=== PATIENT | female | born 1930 | race Caucasian/White ===

== ENCOUNTER → 2017-03-06 | Outpatient (CLI) | payer OTHER ==
[~2017-03-06] MED LIST: ARNICA120 ML TP; ASA5UEC PO; BACLOFEN 10MG T10 M1 PO; CENTRUM SILVER1 EAC1 PO; CITRACAL + BON1 EACH PO; CO Q-10100 MG PO; DRAMAMINE50 M1; EQL CALCIUM IN1 EACH PO; FISH OIL-OMEGA1 EACH PO; FOLIC ACID 40400 MC1 PO; FOSAMAX5 MG PO; HYDROCODON-ACE1 EAC7 PO; IRON159 MG PO; LEVOTHROID PO; MECLIZINE HCL12.5 MG PO; MELATONIN1 MG PO; NABUMETONE 500500 M1 PO; SAM-E200 M1 PO; TRAMADOL 50 MG50 MG PO; VITAMIN B-12500 MCG PO; VITAMIN E100 UNI3 PO; VITAMIN E400 UNIT PO; VITAMIN K100 MCG PO; VITAMINC500 PO; ZANTAC 150MG T150 M1 PO; ZESTRIL20 MG PO; ZINC PICOLINAT1 EACH PO
== END ==
LOC: RAD 14:44
DX: S29.9XXA Unspecified injury of thorax, initial encounter (principal); X58.XXXA Exposure to other specified factors, initial encounter; Y93.89 Activity, other specified; Y92.89 Other specified places as the place of occurrence of the external cause; Y99.8 Other external cause status

== ENCOUNTER → 2018-04-08 | Outpatient (CLI) | payer OTHER | LOC: RAD 09:03 | DX: J98.11 Atelectasis (principal); J98.4 Other disorders of lung; M41.84 Other forms of scoliosis, thoracic region; I10 Essential (primary) hypertension; E03.9 Hypothyroidism, unspecified ==

== ENCOUNTER → 2018-04-22 | Outpatient (CLI) | payer OTHER | LOC: RAD 14:25 | DX: J18.9 Pneumonia, unspecified organism (principal); J98.4 Other disorders of lung; M41.84 Other forms of scoliosis, thoracic region ==

== ENCOUNTER → 2019-03-09 | Outpatient (CLI) | payer OTHER | LOC: RAD 11:17 | DX: J44.9 Chronic obstructive pulmonary disease, unspecified (principal); I10 Essential (primary) hypertension; I70.0 Atherosclerosis of aorta; J98.4 Other disorders of lung; M47.814 Spondylosis without myelopathy or radiculopathy, thoracic region; Z88.8 Allergy status to other drugs, medicaments and biological substances ==

== ENCOUNTER → 2020-02-07 | Outpatient (CLI) | payer OTHER ==
[~2020-02-07] MED LIST changes: +K2 PLUS D3 TAB1 EACH PO; +LEVO-T50 MCG PO; +MULTIVITAMINS1 EAC7 PO
== END ==
LOC: LAB 08:37
PROVIDERS: ATTEND Student in an Organized Health Care Education/Training Program
DX: Z01.812 Encounter for preprocedural laboratory examination (principal); Z11.59 Encounter for screening for other viral diseases

== ENCOUNTER → 2020-02-09 | Day surgery (SDC) | payer OTHER ==
[~2020-02-09] VITALS: Ht 157.5 cm; Wt 68.5 kg
[2020-02-09 11:16] VITALS: BP 159/70
[2020-02-09 14:20] VITALS: BP 159/70
--- NOTE | 2020-02-16 07:37 | O ---
[facility] [place] [address] OPERATIVE REPORT Name: [place] Room #: [facility].#: [id number] Admission: 02/09/20 Attend Phys: Gian Melo MD Discharge: Date of : 34 Report #: [id number] THIS REPORT FOR: cc: Abdullahi Peterson MD, Rene P. MD McCabe,Gian Jones MD ~ CC: Gian Peterson DATE OF SERVICE: 02/09/2020 SERVICE: Orthopedics. FACILITY: [facility]. SURGEON: Gian Melo MD [employer] REPRESENTATIVE: Marilee Boss NP. PREOPERATIVE DIAGNOSES: Comminuted displaced left intra-articular distal radius fracture. POSTOPERATIVE DIAGNOSIS: Comminuted displaced left intraarticular distal radius fracture. PROCEDURE: Open reduction and internal fixation of left distal radius fracture with fixation of 3 parts. COMPLICATIONS: None. DRAINS: None. SPECIMENS: None. FINDINGS: 1. Volarly displaced fracture, treated with Synthes volar plate. 2. Extra-articular hardware position confirmed in xrays multiple planes. HISTORY: The patient is an 89-year-old female who sustained a fall resulted in a severely displaced left distal radius fracture. She had a closed reduction performed, but lost reduction and had significant deformity to her wrist despite a period of immobilization with an above elbow splint. She was having pain and was concerned about the deformity and together with consultation with her daughter we elected to proceed with surgical treatment for a quicker resolution of this situation with more anatomic alignment of her wrist and decreased risk of recurrent instability and worsening deformity. Risks, benefits, alternatives [facility] [address] [place] [address] OPERATIVE REPORT Name: [place] Room #: [facility].#: [id number] Admission: 02/09/20 Attend Phys: Gian Melo MD Discharge: Date of : 34 Report #: [id number] and indication of surgery discussed with her. Risks include but not limited to pain, bleeding, infection, injury to nerves or blood vessels, malunion, nonunion, need for further surgery as well as complications related to anesthesia up to and including . Despite the risks, she wished to proceed. PROCEDURE IN DETAIL: After left arm was correctly identified as the operative extremity, the patient was taken to the operating room where general anesthesia was induced without complication. She was padded appropriately. Prophylactic antibiotics were administered at appropriate time. Tourniquet was applied to the left arm. Left upper extremity was then prepped and draped in standard sterile fashion. Time-out procedure was performed. Esmarch was used. Tourniquet inflated to 250 mmHg. Standard anterior approach was made to the wrist through the flexor carpi radialis tendon sheath which was retracted and then the pronator quadratus was visualized and then was incised and reflected off the distal radius. The fracture was visualized as well and gapped open. The fracture hematoma was irrigated. Reduction maneuver was performed. Alignment was assessed on x-ray and then we placed the plate and provisional fixation was achieved through the oval hole. I again checked the position on multiple planes of x-ray and was happy with the position and confirmed that it was proximal to the articular space and then placed the distal locking screws as well as the shaft screws. The fracture was maintained in good alignment, both on AP and lateral view. Again, the screws were confirmed to be in an extraarticular position without penetrating the posterior cortex. After all fixation was completed, I took final x-rays and again confirmed appropriate position of the plate as well as the screws and alignment of the fracture in the wrist. The three fragments total were the shaft fragment, the volar cortical fragment which was contiguous with the ulnar column and then the radial styloid/radial column segment. The fracture line did extend into the joint and the fixation did stabilize the fracture well and support the articular surface. Her wound was copiously irrigated. The skin was closed with 2-0 Vicryl followed by nylons and then a sterile dressing and a short-arm splint was then applied. The patient was awakened from anesthesia and taken to recovery room in stable condition. There were no complications and all counts were recorded as correct. <ELECTRONICALLY SIGNED> By: Gian Melo MD 02/16/20 [id number] Gian Melo MD /nt
== END | disposition home or self-care (01) ==
LOC: OR 09:18
PROVIDERS: ATTEND Orthopaedic Surgery Sports Medicine
DX: S52.572A Other intraarticular fracture of lower end of left radius, initial encounter for closed fracture (principal); M25.532 Pain in left wrist; I10 Essential (primary) hypertension; E11.9 Type 2 diabetes mellitus without complications; E03.9 Hypothyroidism, unspecified; K21.9 Gastro-esophageal reflux disease without esophagitis; Z98.890 Other specified postprocedural states; Z79.899 Other long term (current) drug therapy; Z96.653 Presence of artificial knee joint, bilateral; Z86.73 Personal history of transient ischemic attack (TIA), and cerebral infarction without residual deficits; Z85.3 Personal history of malignant neoplasm of breast; Z88.8 Allergy status to other drugs, medicaments and biological substances; X58.XXXA Exposure to other specified factors, initial encounter; Y93.89 Activity, other specified; Y92.89 Other specified places as the place of occurrence of the external cause; Y99.8 Other external cause status
CPT/HCPCS: 50010; 50101; 50386; 51277; 51736; 56525; 56526; 56527; 56528; 56667; 57091; 57178; 58197; 58198; 58199; 58200; 58201; 58202; 62110; 62900; 70005